=== PATIENT | female | born 1935 | race Caucasian/White ===

== ENCOUNTER 2016-12-24 08:56 | Outpatient (CLI) | payer MEDICARE, OTHER ==
[2016-12-24 09:47] LABS: #Basophils 0.1 thou/uL (0.0-0.2); #Eosinphils 0.7 thou/uL (0.0-0.7); #Lymphocytes 1.5 thou/uL (1.20-3.40); #Monocytes 0.5 thou/uL (0.11-0.59); #Neutrophils 3.3 thou/uL (1.40-6.50); %Basophils 1.1 % (0.0-1.0); %Eosinophils 10.9 % (0.0-10.0); %Monocytes 8.5 % (0.0-10.0); Hematocrit 38.7 % (36.0-47.0); Mean Platelet Volume 4.9 fL (7.4-10.4); Red Blood Cell (RBC) Count 4.21 mill/uL (4.20-5.40); White Blood Cell (WBC) Count 6.1 thou/uL (4.8-10.8)
[2016-12-24 10:17] LABS: ALT (SGPT) 23 U/L (0-55); AST (SGOT) 17 U/L (5-34); Alkaline Phosphatase 80 U/L (40-150); Anion Gap 12 mmol/L (10-20); BUN (Urea Nitrogen) 14 mg/dL (9.8-20.1); Bilirubin, Total 0.4 mg/dL (0.2-1.2); Calc. Creatinine Clearance 0 mL/min (70-130); Calcium 9.3 mg/dL (7.8-10.44); Carbon Dioxide 29 mmol/L (23-31); Chloride 99 mmol/L (98-107); Estimated GFR-MDRD Greater than 90; LDL Cholesterol, Calculated 149 mg/dL; Protein, Total 7.2 g/dL (5.8-8.1)
[2016-12-24 10:44] LABS: Hemoglobin A1c 5.8 % (4.0-6.0)
[2016-12-24 18:41] LABS: Microalbumin Urine 5.8 mg/dL (0.5-50.0)
== END 2016-12-24 08:57 | disposition home or self-care (01) ==
LOC: BURLAB 08:56
PROVIDERS: ATTEND Family Medicine
DX: G40.909 Epilepsy, unspecified, not intractable, without status epilepticus (principal); E11.9 Type 2 diabetes mellitus without complications
CPT/HCPCS: 80053; 80061; 82043; 83036; 84443; 85025

== ENCOUNTER 2020-03-05 23:15 | Emergency (ER) | payer MEDICARE, OTHER ==
[2020-03-06 00:26] LABS: #Lymphocytes 1.3 thou/uL (1.20-3.40); #Monocytes 0.6 thou/uL (0.11-0.59); #Neutrophils 13.4 thou/uL (1.40-6.50); %Basophils 0.3 % (0.0-1.0); %Eosinophils 0.2 % (0.0-10.0); %Lymphocytes 8.6 % (21.0-51.0); Hemoglobin 11.6 g/dL (12.0-16.0); Mean Corpuscular HGB CONC 33.8 g/dL (32.0-36.0); Mean Corpuscular Hemoglobin 31.1 pg (27.0-31.0); Mean Corpuscular Volume 92.1 fL (78.0-98.0); Mean Platelet Volume 5.8 fL (7.4-10.4); Platelet Count 287 thou/uL (130-400); RBC Distribution Width 11.2 % (11.5-14.5); Red Blood Cell (RBC) Count 3.73 mill/uL (4.20-5.40); White Blood Cell (WBC) Count 15.4 thou/uL (4.8-10.8)
[2020-03-06 00:45] LABS: ALT (SGPT) 19 U/L (8-55); AST (SGOT) 20 U/L (5-34); Albumin 4.1 g/dL (3.4-4.8); Alkaline Phosphatase 78 U/L (40-110); Anion Gap 14 mmol/L (10-20); BUN (Urea Nitrogen) 23 mg/dL (9.8-20.1); Bilirubin, Total 0.3 mg/dL (0.2-1.2); Calc. Creatinine Clearance 0 mL/min (70-130); Calcium 8.8 mg/dL (7.8-10.44); Carbon Dioxide 25 mmol/L (23-31); Chloride 96 mmol/L (98-107); Estimated GFR-MDRD 89; Globulin 2.8 g/dL (2.4-3.5); Glucose 146 mg/dL (83-110); Potassium 4.2 mmol/L (3.5-5.1); Protein, Total 6.9 g/dL (6.0-8.3); Sodium 131 mmol/L (136-145)
--- NOTE | 2020-03-06 08:37 | RAD ---
PORTABLE CHEST: DATE: 03/05/2020. FINDINGS: An AP portable film at 0027 shows a normal-sized heart and clear lungs. No infiltrate or effusion wa s seen. Calcification is seen in the aortic arch. There is no pneumothorax, congestion, or edema. No fractures were apparent. IMPRESSION: No acute finding. POS: HOME
--- NOTE | 2020-03-06 09:20 | CT ---
PRELIMINARY REPORT/[facility]/EMERGENCY AFTER HOURS PROCEDURE: PROCEDURE: CT scan Cervical Spine without contrast. HISTORY: Trauma and fall. TECHNIQUE: Axial images were performed without IV contrast with multiplanar reconstructions . COMPARISON: None . FINDINGS: No acute fracture or displacement. Mild to moderate disc space narrowing and spondylosis. Facets show normal alignment with scattered mild to moderate arthrosis. Spinous processes are unrema rkable. Moderate median atlantoaxial joint arthrosis. Mild to moderate atherosclerosis carotid bifurcations. IMPRESSION: No acute bony abnormality. Cervical spondyloarthropathy. Atherosclerosis. ELECTRONICALLY SIGNED BY: Robert Lockett MD March 06, 2020 12:01:41 AM CDT This report is intended for review by the ordering physician only, in accordance of law. If you recei ve this report in error, please call [facility] at [phone]. FINAL REPORT CT OF THE CERVICAL SPINE: DATE: 03/05/2020. FINDINGS: Spiral CT of the cervical spine was performed following trauma. No fracture, dislocation, or acute b eliot change was seen at any cervical level. The spine alignment is acceptable. The C1 to dens distan ce is normal. Disk space narrowing is present at particularly C3-C4 and C5-C6. The C1 to dens dista nce is normal. The soft tissues are normal in thickness. Findings by level follow: C1-C2: No acute findings. C2-C3: No acute findings. C3-C4: Moderate left foraminal narrowing due to osteophytes and overgrowth of the left facet joint. C4-C5: Facet arthritis left greater than right. C5-C6: Mild bilateral foraminal narrowing. Substantial face arthritis on the right. C6-C7: No acute findings. C7-T1: No acute findings. T1-T2: No acute findings. The lung apices show some scarring. The soft tissues of the neck showed no acute changes. IMPRESSION: Degenerative changes throughout the spine, but no acute traumatic findings. Report in agreement with preliminary reading by [facility]. POS: HOME
--- NOTE | 2020-03-06 09:22 | CT ---
PRELIMINARY REPORT/[facility]/EMERGENCY AFTER HOURS PROCEDURE: PROCEDURE: CT Head without Contrast . HISTORY: Fall and trauma. TECHNIQUE: Axial images were performed without the administration of IV contrast with or without mult iplanar reformations . COMPARISON: None . FINDINGS: Brain shows no mass, hemorrhage, or acute stroke. Encephalomalacia LEFT frontal lobe from previous trauma or stroke. Moderate periventricular old micr oischemic changes. Ventricles are normal size for patient's age. No acute skull or scalp abnormality. Previous craniotomy anteriorly. Clear visualized sinuses and mastoids. Partially calcified orbital globe on the LEFT. Bony deformity anterior LEFT maxillary sinus related to previous trauma. IMPRESSION: No acute intracranial abnormality. Senescent changes. Previous craniotomy anteriorly. Previous LEFT maxillary sinus trauma and partially calcified LEFT orbital globe . ELECTRONICALLY SIGNED BY: Robert Lockett MD March 05, 2020 11:58:54 PM CDT This report is intended for review by the ordering physician only, in accordance of law. If you recei ve this report in error, please call [facility] at [phone]. FINAL REPORT CT OF THE BRAIN WITHOUT CONTRAST: DATE: 03/05/2020. COMPARISON: Comparison is made with a prior study dated 04/24/2014. FINDINGS: Diffuse atrophy is present with moderate contracting engineer dilatation of the ventricles. There is an old a jed of encephalomalacia involving the left frontal lobe. There probably has been old trauma to the l eft maxillary sinus. The left globe of the eye is partially calcified. No intracranial bleeding or extraaxial hematoma was seen. Chronic ischemic changes are seen elsewhere throughout the brain parenchyma; however, there are 2 mor e focal low-density areas on the right in the deep white matter just adjacent to and above the right basal ganglia extending into the centrum semiovale. These were not present on the 2013 study. These could represent strokes that occurred in the interval or even be acute. Correlate with current symp toms. There is no sign of mass. No current fractures were identified. There has been a prior anter ior frontal craniotomy. The visible sinuses are clear. IMPRESSION: 1. Old changes as noted including left frontal encephalomalacia, atrophy, chronic ischemic changes, and mild compensatory ventricular dilation. The ventricular size has not changed substantially over time. 2. No intracranial bleeding. 3. At least 2 new low-density areas in the right cerebral hemisphere of indeterminate age. Report in agreement with preliminary reading by [facility]. POS: HOME
== END 2020-03-06 01:10 | disposition short-term general hospital (02) ==
LOC: BURERS 23:15
DX: S06.9X9A Unspecified intracranial injury with loss of consciousness of unspecified duration, initial encounter (principal); S01.01XA Laceration without foreign body of scalp, initial encounter; R55 Syncope and collapse; E11.9 Type 2 diabetes mellitus without complications; Z79.899 Other long term (current) drug therapy; W22.8XXA Striking against or struck by other objects, initial encounter
CPT/HCPCS: 12002; 36415; 70450; 71045; 72125; 80053; 83880; 84484; 85025; 93005

== ENCOUNTER 2020-10-17 15:02 | Outpatient (CLI) | payer MEDICARE, OTHER ==
--- NOTE | 2020-10-17 19:45 | CT ---
CT OF THE LUMBAR SPINE: 10/17/20 Comparison is made with plain films of the lumbar spine dated 11/04/16. In the interval there has been the beginnings of compression of the superior end plates of L2 and L3. The degree of compression is relatively minor. Mild spondylolisthesis of L4 on L5 was present before and is seen again today. Findings by level follows: T12-L1: No acute findings. The disc space is narrow. Osteophytes are present particularly anteriorly. L1-L2: The disc is quite degenerated. There is no sign of central canal or foraminal stenosis. The L2 superior end plate is slightly compressed and a portion of it protrudes slightly posteriorly by abou t 5 mm. It just effaces the thecal sac and does not cause any significant stenosis. Its effect is rel atively minor. L2-L3: This disc is degenerated as well. No foraminal or central canal stenosis was seen. There is mi ld depression of the superior end plate of L3 without any significant retropulsion of fragments. Ther e is no spinal stenosis. L3-L4: Degenerative changes are seen in the disc. Facet overgrowth is present as well as slight ligam entous hypertrophy, but the amount is not excessive to cause significant spinal stenosis. L4-L5: There is a concentric bulge of the disc as well as prominence of it due to the spondylolisthes is that is present. Severe facet arthritis is present bilaterally. There is also some ligamentous hyp ertrophy. The thecal sac is slightly crowded at this level, and while the AP diameter is sufficient a t 9 to 10 mm, there appears to be some very mild central canal stenosis here. L5-S1: There is no significant disc protrusion, foraminal narrowing or central canal narrowing. Mild facet hypertrophy and arthritis is present. An incidental finding is a 2.8 cm low density mass involving the left adrenal gland. Its average CT n umbers are around -12. This makes it highly likely that this is an adenoma. I feel further workup is not needed. IMPRESSION: 1. Mild compression of the superior end plates of L2 and L3. 2. 5 mm retropulsion of the L2 fragment, but it does not appear to cause any significant stenosi s of the thecal sac or otherwise. 3. Multilevel degenerative disc disease. 4. Significant facet arthritis at multiple levels, most severe at L4-L5 where one sees spondylol isthesis. 5. Mild degree of spinal stenosis at L4-L5. 6. Presumed left adrenal adenoma. See above. Comment: There are no findings to explain fecal incontinence. POS: HOME
== END 2020-10-17 15:03 | disposition home or self-care (01) ==
LOC: BURCT 15:02
PROVIDERS: ATTEND Nurse Practitioner Acute Care
DX: R15.9 Full incontinence of feces (principal); M47.816 Spondylosis without myelopathy or radiculopathy, lumbar region; M43.16 Spondylolisthesis, lumbar region; M48.061 Spinal stenosis, lumbar region without neurogenic claudication
CPT/HCPCS: 72131

== ENCOUNTER 2021-05-11 20:58 | Emergency (ER) | payer OTHER, MEDICARE ==
[2021-05-11] MEDS ORDERED: Bacitracin 1 PK ONE (22:10)
== END 2021-05-11 22:20 | disposition home or self-care (01) ==
LOC: BURERS 20:58
DX: S01.01XA Laceration without foreign body of scalp, initial encounter (principal); S61.412A Laceration without foreign body of left hand, initial encounter; Z79.899 Other long term (current) drug therapy; I10 Essential (primary) hypertension; Z87.891 Personal history of nicotine dependence; W01.10XA Fall on same level from slipping, tripping and stumbling with subsequent striking against unspecified object, initial encounter
CPT/HCPCS: 12001; 70450; 72125

== ENCOUNTER 2021-06-19 15:24 | Emergency (ER) | payer MEDICARE, OTHER ==
[2021-06-19 16:28] LABS: #Basophils 0.1 thou/uL (0.0-0.2); #Eosinphils 0.3 thou/uL (0.0-0.7); #Lymphocytes 0.8 thou/uL (1.20-3.40); #Monocytes 0.8 thou/uL (0.11-0.59); #Neutrophils 5.9 thou/uL (1.40-6.50); %Basophils 0.9 % (0.0-1.0); %Lymphocytes 9.7 % (21.0-51.0); %Monocytes 10.5 % (0.0-10.0); %Neutrophils 74.9 % (42.0-75.0); Hemoglobin 11.2 g/dL (12.0-16.0); Mean Corpuscular HGB CONC 35.2 g/dL (32.0-36.0); Mean Corpuscular Volume 91.1 fL (78.0-98.0); Mean Platelet Volume 5.6 fL (7.4-10.4); Platelet Count 326 thou/uL (130-400); RBC Distribution Width 11.7 % (11.5-14.5); White Blood Cell (WBC) Count 7.9 thou/uL (4.8-10.8)
[2021-06-19 16:32] LABS: Anion Gap 13 mmol/L (10-20); BUN (Urea Nitrogen) 20 mg/dL (9.8-20.1); Calc. Creatinine Clearance 0 mL/min (70-130); Calcium 8.7 mg/dL (7.8-10.44); Carbon Dioxide 28 mmol/L (23-31); Chloride 95 mmol/L (98-107); Glucose 141 mg/dL (83-110); Potassium 5.1 mmol/L (3.5-5.1); Sodium 131 mmol/L (136-145)
[2021-06-19 18:01] LABS: Bilirubin Negative (Negative); Blood, Urine Negative (Negative); Clarity Clear (Clear); Glucose, Urine (Dipstick) 100 mg/dL (Negative); Ketone, Urine Negative (Negative); Leukocyte Negative (Negative); Nitrite Negative (Negative); Protein, Urine (Dipstick) 100 mg/dL (Neg-Trace); Urobilinogen 0.2 mg/dL (Less than 2)
[2021-06-19 18:33] LABS: RBC/HPF 0-3 HPF (0-3)
[2021-06-19 18:34] LABS: Bacteria/HPF None Seen HPF (None Seen); Squamous Epithelial 0-3 HPF (0-3); WBC/HPF 0-3 HPF (0-3)
[2021-06-19] MEDS ORDERED: Bacitracin 1 PK ONE (18:57)
== END 2021-06-19 18:59 | disposition home or self-care (01) ==
LOC: BURERS 15:24
DX: R56.00 Simple febrile convulsions (principal); S61.412A Laceration without foreign body of left hand, initial encounter; I10 Essential (primary) hypertension; Z87.891 Personal history of nicotine dependence; Z79.899 Other long term (current) drug therapy
CPT/HCPCS: 36415; 80048; 81003; 81015; 85025; 99284

== ENCOUNTER 2022-01-11 19:30 | Emergency (ER) | payer OTHER, MEDICARE ==
[2022-01-11] MEDS ORDERED: Lidocaine 4% Cream 5 GM TUBE w/ Tegaderm ONE (19:58)
[2022-01-11 19:59] LABS: #Basophils 0.1 thou/uL (0.0-0.2); #Eosinphils 0.5 thou/uL (0.0-0.7); #Lymphocytes 1.1 thou/uL (1.20-3.40); #Monocytes 0.9 thou/uL (0.11-0.59); #Neutrophils 13.4 thou/uL (1.40-6.50); %Basophils 0.6 % (0.0-1.0); %Eosinophils 3.1 % (0.0-10.0); %Lymphocytes 6.9 % (21.0-51.0); %Monocytes 5.5 % (0.0-10.0); %Neutrophils 83.9 % (42.0-75.0); Hemoglobin 10.1 g/dL (12.0-16.0); Mean Corpuscular HGB CONC 33.9 g/dL (32.0-36.0); Mean Corpuscular Hemoglobin 31.1 pg (27.0-31.0); Mean Corpuscular Volume 91.7 fL (78.0-98.0); Mean Platelet Volume 5.2 fL (7.4-10.4); Platelet Count 389 thou/uL (130-400); RBC Distribution Width 11.8 % (11.5-14.5); Red Blood Cell (RBC) Count 3.24 mill/uL (4.20-5.40); White Blood Cell (WBC) Count 15.9 thou/uL (4.8-10.8)
[2022-01-11 20:03] LABS: INR-International Normal Ratio 0.9; Prothrombin Time 12.6 sec (12.0-14.7)
[2022-01-11 20:12] LABS: ALT (SGPT) 20 U/L (8-55); AST (SGOT) 18 U/L (5-34); Albumin 3.8 g/dL (3.4-4.8); Alkaline Phosphatase 70 U/L (40-110); Anion Gap 14 mmol/L (10-20); BUN (Urea Nitrogen) 27 mg/dL (9.8-20.1); Bilirubin, Total Less than 0.2 mg/dL (0.2-1.2); Calc. Creatinine Clearance 0 mL/min (70-130); Calcium 8.5 mg/dL (7.8-10.44); Carbon Dioxide 26 mmol/L (23-31); Chloride 96 mmol/L (98-107); Globulin 3.2 g/dL (2.4-3.5); Glucose 140 mg/dL (83-110); Potassium 4.8 mmol/L (3.5-5.1); Sodium 131 mmol/L (136-145)
[2022-01-12 00:20] LABS: SARS-CoV-2 NAA Rapid Test Not Detected (NotDetected)
== END 2022-01-11 20:50 | disposition short-term general hospital (02) ==
LOC: EDBD 19:30 → BURERS 19:30
DX: S72.002A Fracture of unspecified part of neck of left femur, initial encounter for closed fracture (principal); S41.111A Laceration without foreign body of right upper arm, initial encounter; S41.112A Laceration without foreign body of left upper arm, initial encounter; I10 Essential (primary) hypertension; E11.9 Type 2 diabetes mellitus without complications; W01.0XXA Fall on same level from slipping, tripping and stumbling without subsequent striking against object, initial encounter; Z87.891 Personal history of nicotine dependence; Z20.822 Contact with and (suspected) exposure to COVID-19
CPT/HCPCS: 12002; 71045; 72170; 80053; 85025; 85610; U0002

== ENCOUNTER 2022-01-22 16:30 | Emergency (ER) | payer MEDICARE ==
[2022-01-22 16:48] LABS: #Basophils 0.1 thou/uL (0.0-0.2); #Eosinphils 0.6 thou/uL (0.0-0.7); #Monocytes 0.8 thou/uL (0.11-0.59); #Neutrophils 9.2 thou/uL (1.40-6.50); %Basophils 0.8 % (0.0-1.0); %Eosinophils 5.1 % (0.0-10.0); %Lymphocytes 8.2 % (21.0-51.0); %Monocytes 6.9 % (0.0-10.0); %Neutrophils 79.1 % (42.0-75.0); Hemoglobin 9.8 g/dL (12.0-16.0); Mean Corpuscular HGB CONC 32.7 g/dL (32.0-36.0); Mean Corpuscular Hemoglobin 30.3 pg (27.0-31.0); Mean Corpuscular Volume 92.7 fL (78.0-98.0); Mean Platelet Volume 5.3 fL (7.4-10.4); Platelet Count 662 thou/uL (130-400); RBC Distribution Width 12.3 % (11.5-14.5); Red Blood Cell (RBC) Count 3.24 mill/uL (4.20-5.40); White Blood Cell (WBC) Count 11.7 thou/uL (4.8-10.8)
[2022-01-22 17:24] LABS: ALT (SGPT) 33 U/L (8-55); AST (SGOT) 31 U/L (5-34); Albumin 3.7 g/dL (3.4-4.8); Alkaline Phosphatase 55 U/L (40-110); Anion Gap 20 mmol/L (10-20); BUN (Urea Nitrogen) 20 mg/dL (9.8-20.1); Bilirubin, Total 0.3 mg/dL (0.2-1.2); Calc. Creatinine Clearance 0 mL/min (70-130); Calcium 8.7 mg/dL (7.8-10.44); Carbon Dioxide 26 mmol/L (23-31); Chloride 88 mmol/L (98-107); Globulin 3.2 g/dL (2.4-3.5); Glucose 134 mg/dL (83-110); Protein, Total 6.9 g/dL (5.8-8.1); Sodium 129 mmol/L (136-145)
[2022-01-22 18:23] LABS: Bilirubin Negative (Negative); Blood, Urine Negative (Negative); Clarity Slightly Cloudy (Clear); Glucose, Urine (Dipstick) Negative (Negative); Ketone, Urine Negative (Negative); Leukocyte Negative (Negative); Nitrite Negative (Negative); Protein, Urine (Dipstick) Negative (Neg-Trace); Specific Gravity, Urine 1.015 (1.005-1.030); Urobilinogen 0.2 mg/dL (Less than 2); pH, Urine 5.5 (5.0-9.0)
[2022-01-22] MEDS ORDERED: Ibuprofen 800 MG TAB ONE (19:16)
[2022-01-22] MEDS ORDERED: traMADol HCl 50 MG TAB ONE (19:16)
== END 2022-01-22 21:48 | disposition home or self-care (01) ==
LOC: BURERS 16:30
DX: G40.909 Epilepsy, unspecified, not intractable, without status epilepticus (principal); I10 Essential (primary) hypertension; E11.9 Type 2 diabetes mellitus without complications; Z87.891 Personal history of nicotine dependence
CPT/HCPCS: 51701; 80053; 81003; 85025

== ENCOUNTER 2023-01-29 04:16 | Emergency (ER) | payer MEDICARE, OTHER ==
[2023-01-29 04:54] LABS: #Basophils 0.1 thou/uL (0.0-0.2); #Eosinphils 0.9 thou/uL (0.0-0.7); #Lymphocytes 1.2 thou/uL (1.20-3.40); #Monocytes 0.8 thou/uL (0.11-0.59); #Neutrophils 6.7 thou/uL (1.40-6.50); %Basophils 1.1 % (0.0-1.0); %Eosinophils 9.4 % (0.0-10.0); %Monocytes 8.1 % (0.0-10.0); %Neutrophils 69.4 % (42.0-75.0); Hemoglobin 10.2 g/dL (12.0-16.0); Mean Corpuscular HGB CONC 33.1 g/dL (32.0-36.0); Mean Corpuscular Hemoglobin 30.6 pg (27.0-31.0); Mean Corpuscular Volume 92.6 fl (78.0-98.0); Mean Platelet Volume 5.5 fL (7.4-10.4); Platelet Count 386 10x3/uL (130-400); RBC Distribution Width 11.6 % (11.5-14.5); Red Blood Cell (RBC) Count 3.32 mill/uL (4.20-5.40); White Blood Cell (WBC) Count 9.6 10x3/uL (4.8-10.8)
[2023-01-29 04:58] LABS: Bilirubin Negative (Negative); Blood, Urine Trace (Negative); Clarity Clear (Clear); Glucose, Urine (Dipstick) Negative (Negative); Ketone, Urine Negative (Negative); Leukocyte Negative (Negative); Nitrite Negative (Negative); Protein, Urine (Dipstick) Negative (Neg-Trace); Specific Gravity, Urine 1.015 (1.005-1.030); Urobilinogen 0.2 mg/dL (Less than 2); pH, Urine 5.5 (5.0-9.0)
[2023-01-29 05:11] LABS: ALT (SGPT) 20 U/L (8-55); AST (SGOT) 21 U/L (5-34); Albumin 3.8 g/dL (3.4-4.8); Alkaline Phosphatase 65 U/L (40-110); Anion Gap 14 mmol/L (10-20); BUN (Urea Nitrogen) 27 mg/dL (9.8-20.1); Bilirubin, Total 0.2 mg/dL (0.2-1.2); Calc. Creatinine Clearance 0 mL/min (70-130); Calcium 9.1 mg/dL (7.8-10.44); Carbon Dioxide 27 mmol/L (23-31); Chloride 95 mmol/L (98-107); Estimated GFR 86; Globulin 3.7 g/dL (2.4-3.5); Glucose 134 mg/dL (83-110); Lipase 16 U/L (8-78); Potassium 4.6 mmol/L (3.5-5.1); Protein, Total 7.5 g/dL (5.8-8.1); Sodium 131 mmol/L (136-145)
[2023-01-29 05:54] LABS: Bacteria/HPF None Seen HPF (None Seen); RBC/HPF 0-3 HPF (0-3); Squamous Epithelial 0-3 HPF (0-3); WBC/HPF None Seen HPF (0-3)
[2023-01-29 06:11] LABS: Base Excess-Venous 1.7 mmol/L (-2.0 to 3.0); Bicarbonate (HCO3v) 28.4 mmol/L (22.0-28.0); CO2 Tension (PvCO2) 51.3 mmHg (42.0-51.0); Calcium, Ionized 1.09 mmol/L (1.15-1.33); Chloride 96 mmol/L (98-107); Hemoglobin - Calc 14.3 g/dL (12.0-16.0); Potassium 4.5 mmol/L (3.5-5.1); Sodium 131 mmol/L (138-145); T. Carbon Dioxide 29.9 mmol/L (22.0-28.0); vO2 Saturation-calc 95.7 % (60.0-85.0)
[2023-01-29] MEDS ORDERED: Acetaminophen 650 MG Suppository ONE (06:41)
[2023-01-29] MEDS ORDERED: Hydrochlorothiazide 25 MG TAB ONE (06:41)
[2023-01-29] MEDS ORDERED: Metoprolol Tartrate 25 MG TAB PO SCH (06:45)
== END 2023-01-29 10:15 | disposition home or self-care (01) ==
LOC: BURERS 04:16
DX: R41.82 Altered mental status, unspecified (principal); I10 Essential (primary) hypertension; E11.9 Type 2 diabetes mellitus without complications; Z79.899 Other long term (current) drug therapy; Z79.82 Long term (current) use of aspirin; Z79.84 Long term (current) use of oral hypoglycemic drugs; Z87.891 Personal history of nicotine dependence
CPT/HCPCS: 36415; 51701; 70450; 71045; 74176; 80053; 81003; 81015; 82330; 82803; 83605; 83690; 83880; 85025; 93005; 96360